=== PATIENT | male | born 1975 | race Caucasian/White ===

== ENCOUNTER 2016-04-23 12:19 | Emergency (ER) | payer OTHER ==
--- NOTE | 2016-04-23 13:04 | EDPHY ---
H & P Stated Complaint: seizure Time Seen by Provider: 04/23/16 12:55 HPI/ROS: Chief complaint: Seizure HPI: 32-year-old male with no seizure disorder who takes carbamazepine. He had a witnessed tonic-clonic seizure today and fell. He was postictal for [facility] awake alert will be confused. Does state that he has been taking medications for this otherwise the complete. No headache fluid no neck pain. No numbness or tingling. Has been using marijuana "for his seizures". Denies any other drug use. ROS: 10 point Review of Systems is negative except as noted in the HPI. Past medical history: Seizures Medications: Carbamazepine Allergies: No known drug allergies Physical exam: Gen: Awake, Alert, No Distress HEENT: Nose: no rhinorrhea Eyes: PERRLA, EOMI Mouth: Moist mucosa Neck: Supple, no JVD Chest: nontender, lungs clear to auscultation Heart: S1, S2 normal, no murmur Abd: Soft, non-tender, no guarding Back: no CVA tenderness, no midline tenderness Ext: no edema, non-tender Skin: no rash Neuro: CN II-XII intact, Sensation grossly intact, Strength 5/5 in bilateral upper and lower extremities - Personal History Current Tetanus/Diphtheria Vaccine: Unsure Current Tetanus Diphtheria and Acellular Pertussis (TDAP): Unsure - Medical/Surgical History Hx Asthma: No Hx Chronic Respiratory Disease: No Hx Diabetes: No Hx Cardiac Disease: No Hx Renal Disease: No Hx Cirrhosis: No Hx Alcoholism: No Hx HIV/AIDS: No Hx Splenectomy or Spleen Trauma: No Other PMH: seizures, denies any other illness Constitutional: Initial Vital Signs Temperature (C) 36.5 C 04/23/16 12:19 Heart Rate 105 H 04/23/16 12:19 Respiratory Rate 16 04/23/16 12:19 Blood Pressure 136/86 H 04/23/16 12:19 O2 Sat (%) 98 04/23/16 12:19 O2 Delivery Mode Room Air Allergies/Adverse Reactions: No Known Allergies Allergy (Unverified 04/23/16 12:59) Home Medications: Medication Instructions Recorded Carbamazepine 04/23/16 Medical Decision Making ED Course/Re-evaluation: 32-year-old male with a known seizure disorder with a witnessed tonic-clonic seizure. He is on carbamazepine which he states he is compliant with. I will check a carbamazepine level. He is otherwise clinically cleared. If this is therapeutic will plan for discharge to follow up with Neurology. If his abnormal load him appropriately. Pt carbamazepine level is a bit above therapeutic range at 15. I have instructed and can take continue taking his normal medications. Will refer him for outpatient follow-up as he does not have a local doc. No other obvious signs of injury secondary to seizure. - Data Points Laboratory Results: 04/23/16 12:40 Carbamazepine 15.0 ug/mL H ug/mL (4.0-12.0) Departure - Departure Disposition: Home, Routine, Self-Care Clinical Impression: Seizure Condition: Good Instructions: Epilepsy (ED) Additional Instructions: Follow up with the [facility] and with Neurology for further management of your seizure disorder. Return to the emergency department for uncontrolled seizures, head injury, nausea, vomiting, headache, fevers, chills, or any other concerns. Referrals: Patient,NotPresent [Unknown] - As per Instructions Roman Renteria DO [Doctor of Osteopathy] - As per Instructions
[2016-04-23 14:20] VITALS: BP 130/83; PULSE 98; RESP 18; TEMP 97.9; O2SAT 96
== END 2016-04-23 14:23 | disposition home or self-care (01) ==
DX: G40.909 Epilepsy, unspecified, not intractable, without status epilepticus (principal)

== ENCOUNTER 2016-04-24 12:23 | Emergency (ER) | payer OTHER ==
[2016-04-24 12:46] VITALS: BP 137/104; PULSE 100; RESP 18; TEMP 99.1; O2SAT 93
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
[2016-04-24 12:58] LABS: % IMMATURE GRANULYOCYTES 0.5 % (0.0-1.1); ABSOLUTE IMMATURE GRANULOCYTES 0.04 10^3/uL (0.00-0.10); ADD DIFF? NO; ADD MORPH? NO; ADD SCAN? NO; ATYPICAL LYMPHOCYTE FLAG 20 (0-99); FRAGMENT RBC FLAG 0 (0-99); HEMATOCRIT 45.6 % (40.0-51.0); HEMOGLOBIN 15.8 g/dL (13.7-17.5); LEFT SHIFT FLG 0 (0-99); LIPEMIA HEMOLYSIS FLAG 90 (0-99); MEAN CELL HEMOGLOBIN 32.9 pg (27.9-34.1); MEAN CELL HEMOGLOBIN CONCENTR. 34.6 g/dL (32.4-36.7); MEAN PLATELET VOLUME 9.7 fL (8.7-11.7); PLATELET CLUMPS FLAG 0 (0-99); PLATELET COUNT 314 10^3/uL (150-400); RED CELL DISTRIBUTION WIDTH 11.9 % (11.5-15.2)
[2016-04-24 13:07] LABS: ANION GAP 13 mEq/L (8-16); CALCIUM 9.4 mg/dL (8.5-10.4); CARBON DIOXIDE 27 mEq/l (22-31); CHLORIDE 102 mEq/L (97-110); ETHANOL SERUM < 10 mg/dL (0-10); GLOMERULAR FILTRATION RATE > 60; GLUCOSE 84 mg/dL (70-100); POTASSIUM 3.8 mEq/L (3.5-5.2); SALICYLATE < 1.0 mg/dL (2.0-20.0); SODIUM 142 mEq/L (134-144)
== END 2016-04-24 13:10 | disposition home or self-care (01) ==
LOC: EDUNIT#
DX: F30.9 Manic episode, unspecified (principal)
CPT/HCPCS: G0480